=== PATIENT | female | born 1950 | race Caucasian/White ===

== ENCOUNTER 2021-09-19 17:06 | Inpatient (IN) | payer MEDICARE, SELFPAY ==
[2021-09-19] VITALS (8 sets, daily range): BP systolic 179–208; BP diastolic 66–90; PULSE 72–81; RESP 12–22; TEMP 36.3–37.1; O2SAT 96–100; BMI 25.4
--- NOTE | ~2021-09-19 | CT_ITS ---
EXAMINATION: CT cervical spine wo con DATE: 09/19/2021 18:28 INDICATION: neck pain, fall TECHNIQUE: Computed tomography (CT) of the cervical spine was performed without intravenous contrast. Automated exposure control and iterative reconstruction technique were employed. The dose-length pro duct was 182.22 mGy-cm. COMPARISON: None FINDINGS: Counting reference: Craniocervical junction. There are seven cervical type vertebral bodies. Anatomic Variants: None.. Vertebral Body Alignment: Intact. Craniocervical junction: Mild degenerative change. Alignment intact. Osseous structures/fracture: No evidence of a lytic or blastic process in the visualized spine. N o evidence of acute fracture. Cervical soft tissues: The paraspinal soft tissues planes are maintained. Degenerative changes: Multilevel severe degenerative disc disease. Multilevel severe bilateral neural foraminal narrowing. IMPRESSION: No acute fracture or traumatic malalignment in the cervical spine. Reviewed, dictated and finalized at location K.
--- NOTE | ~2021-09-19 | XR_ITS ---
EXAM: XR hand RT min 3V DATE: 09/19/2021 19:02 HISTORY: pain,1ST DIGIT PAIN . COMPARISON: 10/17/2018. FINDINGS: Decreased mineralization. Old ulnar styloid fracture. No acute fracture or dislocation. No lytic or blastic lesion. Scattered moderate and arthritic changes, most progressive at the trapeziom etacarpal joint, second and third MCP joints, and the second and third PIP joints. No erosion or harshal osteal change. Soft tissues within normal limits. IMPRESSION: No acute osseous finding in the right hand. Reviewed, dictated and finalized at location K.
--- NOTE | ~2021-09-19 | XR_ITS ---
EXAM: XR wrist LT min 3V DATE: 09/19/2021 19:02 HISTORY: FALL,GENERALIZED PAIN LT WRIST . COMPARISON: None available. FINDINGS: Decreased mineralization. No fracture or dislocation. No lytic or blastic lesion. Arthriti c change at the trapeziometacarpal joint and first MCP joint. Subchondral cyst formation in the scaph oid.. No erosion or periosteal change. Soft tissues within normal limits. IMPRESSION: No acute osseous finding in the left wrist.. Reviewed, dictated and finalized at location K.
--- NOTE | ~2021-09-19 | XR_ITS ---
EXAM: XR shoulder LT min 2V DATE: 09/19/2021 17:57 HISTORY: LT SHOULDER PAIN RADIATES UP AND PAINFUL TO MOVE . COMPARISON: None available. FINDINGS: Comminuted, minimally displaced fracture of the distal left clavicle. The AC joint remains aligned. Normal glenohumeral joint. Rotator cuff calcific tendinitis. No other fracture. Visualized lung parenchyma is grossly clear. IMPRESSION: Comminuted minimally displaced distal left clavicular fracture. Reviewed, dictated and finalized at location K.
--- NOTE | ~2021-09-19 | XR_ITS ---
EXAMINATION: XR chest 1V portable Exam Date/Time: 09/19/2021 17:50 CDT HISTORY: Cerebrovascular accident. Comparison: X-ray shoulder, same date. RESULT: Lines, tubes, and devices: None. Lungs and pleura: Senescent changes, otherwise clear. Cardiomediastinal silhouette: Stable cardiomediastinal silhouette. Other: Cortical irregularity of the distal left clavicle. No acute upper abdominal finding. IMPRESSION: Acute distal left clavicular fracture. Reviewed, dictated and finalized at location K.
--- NOTE | ~2021-09-19 | CT_ITS ---
EXAMINATION: CT brain wo con DATE: 09/19/2021 17:12 INDICATION: r/o CVA . TECHNIQUE: Computed tomography (CT) of the head was performed without intravenous contrast. The mA wa s adjusted according to patient size. Iterative reconstruction technique was employed. The dose-lengt h product was 605.33 mGy-cm. COMPARISON: 08/02/2018. FINDINGS: No acute intracranial hemorrhage or extra-axial fluid collection. No hydrocephalus, mass, or herniation. No acute ischemic infarct. Unremarkable dural venous sinus attenuation. No acute osseous abnormality. The aerated spaces are clear. Mild atrophy and chronic white matter change. Atherosclerotic intracranial calcification. IMPRESSION: No acute intracranial process. Reviewed, dictated and finalized at location K.
--- NOTE | ~2021-09-19 | US_ITS ---
EXAMINATION: US carotid duplex BI DATE: 09/20/2021 10:09 INDICATION: Carotid stenosis TECHNIQUE: Grayscale, color Doppler, and pulsed Doppler images of the cervical carotid arteries were obtained. The degree of vessel stenosis is placed in one of the following categories: normal, <50%, 5 0-69%, >=70% but less than near-occlusion, near-occlusion, or total occlusion. Note that percent sten osis relative to normal distal artery lumen diameter is indirectly measured from velocity measurement s as described by Bunny, et al. Radiology 2003; 229:340-346. Notes: Normal: Peak systolic velocity <125 centimeters/sec and no plaque <50%. Peak systolic velocity <125 ( EDV <40; ICA/CCA PSV ratio <2.0; used these factors only a tandem lesions or low cardiac output or co ntralateral disease) 50-69 %: PSV 125-230 (EDV 40-100; ratio 2-4) >= 70% but less than near occlusion: PSV greater than 230 (EDV > 100; ratio> 4.0) Near Occlusion: PSV that is variable; markedly narrowed lumen Occlusion: Absent flow on color/spectral Doppler and no lumen on bey scale. COMPARISON: None. FINDINGS: RIGHT: The right common carotid artery (CCA) peak systolic velocity (PSV) is 94 cm/s. The right internal car otid artery (ICA) PSV is 154 cm/s. The right ICA end-diastolic velocity (EDV) is 44 cm/s. The right I CA/CCA PSV ratio is 1.6. The external carotid artery (ECA) PSV is 64 cm/s. There is antegrade flow in the right vertebral artery. LEFT: The left CCA PSV is 67 cm/s. The left ICA PSV is 143 cm/s. The left ICA EDV is 84 cm/s. The left ICA/ CCA PSV ratio is 2.1. The ECA PSV is 84 cm/s. There is antegrade flow in the left vertebral artery. IMPRESSION: 1. 50-69% stenosis in the right internal carotid artery by sonographic criteria. 2. 50-69% stenosis in the left internal carotid artery by sonographic criteria. Reviewed, dictated and finalized at location A. IMPRESSION: 1. 50-69% stenosis in the right internal carotid artery by sonographic criteria . 2. 50-69% stenosis in the left internal carotid artery by sonographic criteria.
--- NOTE | ~2021-09-19 | MR_ITS ---
EXAMINATION: MR brain/brain stem wo/w con DATE: 09/20/2021 11:29 INDICATION: Acute confusion. Frontal headache. TECHNIQUE: Magnetic resonance imaging (MRI) of the brain and brainstem was performed without and with 14 mL MultiHance intravenous contrast. COMPARISON: Head CT 09/19/2021 FINDINGS: There are scattered areas of nonspecific increased T2-weighted signal intensity in the cere bral white matter, which is within normal limits for the patient's age. There is no intracranial hemo rrhage, acute infarction, or abnormal intracranial mass lesion. The ventricles are normal in size. Th e paranasal sinuses are clear. The orbits are normal. There is a trace left mastoid effusion. IMPRESSION: 1. Normal aging brain. Reviewed, dictated and finalized at location B. IMPRESSION: 1. Normal aging brain.
--- NOTE | 2021-09-19 17:07 | ECG_ITS ---
Measurements Intervals [place] Rate: 76 P: 66 PA: 196 QRS: -34 QRSD: 144 T: 78 QT: 388 QTc: 437 Interpretive Statements SINUS RHYTHM POSSIBLE LEFT ATRIAL ENLARGEMENT [-0.1mV P-WAVE IN V1/V2] LEFT AXIS DEVIATION [QRS AXIS < -30] LEFT BUNDLE BRANCH BLOCK [120+ ms QRS DURATION, 80+ ms Q/S IN V1/V2, 85+ ms R IN I/aVL/V5/V6] ABNORMAL ECG NO PREVIOUS ECG AVAILABLE FOR COMPARISON Electronically Signed On 09-20-2021 12:34:10 CDT by Joey Parry M.D.
[2021-09-19 17:17] LABS: Glucose Point of Care 131 mg/dl (65-105)
[2021-09-19 17:32] LABS: Basophils Percent Auto 0.4 % (0.2-1.2); Eosinophils Absolute Auto 0.1 K/mm3 (0-0.3); Hematocrit 37.2 % (37.0-47.0); Hemoglobin 13.2 g/dL (12.0-15.0); Immature Granulocyte Absolute 0.02 K/mm3 (0.00-0.031); Immature Granulocyte Percent A 0.4 % (0-0.5); Lymphocytes Absolute Auto 1.13 K/mm3 (0.9-3.2); Lymphocytes Percent Auto 24.8 % (18.3-44.2); Mean Corpuscular HGB Conc 35.5 g/dl (32-36); Mean Corpuscular Hemoglobin 29.3 pg (26-34); Mean Corpuscular Volume 82.7 fl (80-100); Mean Platelet Volume 8.7 fl (7.4-10.4); Monocytes Absolute Auto 0.4 K/mm3 (0.1-0.6); Monocytes Percent Auto 8.1 % (2.6-8.5); Neutrophils Absolute Auto 2.9 K/mm3 (1.3-6.7); Neutrophils Percent Auto 64.3 % (45.5-73.1); Platelet Count Result 184 k/mm3 (150-375); Red Cell Distribution Width 12.6 % (11.5-14.5); White Blood Count 4.6 K/mm3 (4.5-10.0)
--- NOTE | 2021-09-19 17:35 | ED.NEUROSD ---
HPI - Neuro Symptoms/Deficit General Chief Complaint: Suspected CVA Stated Complaint: Code CVA Time Seen by Provider: 09/19/21 17:12 Source: patient, EMS and RN notes reviewed Mode of arrival: EMS Limitations: clinical condition History of Present Illness HPI Narrative: This is a 71 year old female with history of hypertension who presents for evaluation of acute confusion. Patient had been outside at a family function all day. She was at the house with her sister, and her sister states patient went out to the garage. On patient's return to the garage she was confused. PAtient did not recognized who certain family members were. On EMS arrival, they report patient was having difficulty speaking and answering questions. On arrival to ER, patient was oriented to person. SHe denies headache, chest pain, dizziness, blurred vision, focal weakness, numbness or tingling. She does complain of left shoulder pain and right hand pain. Denies previous history of TIA or CVA. Last known normal was 1625 today. Timing confirmed by: family member Related Data Home Medications Medication Instructions Recorded Confirmed alendronate 35 mg tablet tablet PO 09/19/21 09/19/21 alprazolam 0.25 mg tablet 0.25 mg PO BID 09/19/21 09/19/21 atorvastatin 10 mg tablet tablet 09/19/21 escitalopram oxalate 10 mg tablet tablet 09/19/21 triamterene 37.5 tablet 09/19/21 mg-hydrochlorothiazide 25 mg tablet Allergies Allergy/AdvReac Type Severity Reaction Status Date / Time azithromycin Allergy Unknown Hives Verified 09/19/21 17:46 Review of Systems Review of Systems: All systems reviewed & are unremarkable except as noted in HPI and below Constitutional: Constitutional: Denies body ache(s), Denies fatigue and Denies fever(s) Eyes: Eyes: Denies blurry vision, Denies exophthalmos and Denies diplopia Cardiovascular: Cardiovascular: Denies chest pain at rest, Denies chest pain with activity and Denies rapid heart rate Respiratory: Respiratory: Denies chest congestion, Denies cough and Denies dyspnea on exertion Gastrointestinal: Gastrointestinal: Denies abdominal pain and Denies diarrhea Genitourinary: Genitourinary: Denies nocturia, Denies urinary hesitancy and Denies urinary urgency Neurologic: Reports confusion and Denies focal weakness [facility] Past Medical History Medical History (Updated 09/19/21 @ 19:54 by Sheri Thomson MD) Hyperlipidemia Hypertension Family History Family History (Updated 03/18/16 @ 14:58 by DOCTOR UNKNOWN) Other Family history of cardiovascular disease Hypertension Social History Social History Smoking status: Never smoker Alcohol intake: current Exam Narrative: GENERAL:lethargic, and in no acute distress. HEAD: Normocephalic, small abrasion left scalp at hairline, no hematoma EYES: PERRLA and EOMI, conjunctiva clear without discharge EARS: TM's clear bilaterally without erythema or dullness NOSE: Nares clear, no rhinorrhea or epistaxis THROAT:Mucous membranes moist, Oropharynx normal without erythema, exudate, peritonsillar swelling or fluctuance NECK: Supple, without lymphadenopathy or mass RESPIRATORY: No respiratory distress, Airway patent, Respirations non-labored, Clear to auscultation without rales, rhonchi or wheeze HEART: Regular rate and rhythm. No murmur heard. Normal peripheral pulses. ABDOMEN: Soft, nontender, nondistended, normal active bowel sounds. No masses. No rebound or guarding, No organomegaly. EXTREMITIES: No edema, normal strength with full range of motion. abrasion to left shoulder, right thumb swelling SKIN: Warm, dry, normal color without rash NEURO: Alert and oriented x self. CN 2-12 grossly intact. No focal deficits. PSYCH: Normal mood and affect. Neuro: General: oriented to person Cranial nerves: Yes CN's II-XII intact bilaterally, Yes Equal, round and reactive pupils present and Yes Bilaterally intact EOM present Speech: normal speech
[2021-09-19 17:42] LABS: Alanine Aminotransferase 18 U/L (6-35); Albumin Level 4.9 g/dL (3.5-5.1); Alkaline Phosphatase 116 U/L (38-126); Anion Gap 9 mmol/L (8-16); Aspartate Amino Transferase 31 U/L (14-36); Bilirubin,Total 0.6 mg/dL (0.2-1.3); Blood Urea Nitrogen 18 mg/dL (7-17); Calcium 9.1 mg/dL (8.4-10.2); Carbon Dioxide 27 mmol/L (22-30); Chloride 97 mmol/L (98-107); Estimated CRCL calculation 43 ml/min; Estimated Glomerular Filt Rate > 60; Glucose 111 mg/dL (65-110); Potassium 3.4 mmol/L (3.4-5.0); Sodium 133 mmol/L (137-145)
[2021-09-19 17:45] LABS: INR 0.9; Prothrombin Time 12.1 Seconds (11.1-14.7)
[2021-09-19 17:46] LABS: Partial Thromboplastin Time 22.6 SECONDS (22.3-36.8)
[2021-09-19 17:48] LABS: Ethanol < 10 mg/dL (<10)
[2021-09-19 17:54] LABS: Troponin I < 0.012 ng/mL (0.000-0.034)
--- NOTE | 2021-09-19 17:58 | PC.NURSE ---
Pt attempting to provide urine sample at this time on bedside commode
--- NOTE | 2021-09-19 18:45 | PC.NURSE ---
pt is on commode at this time attempting to provide urine sample.
[2021-09-19 18:53] LABS: SARS-CoV-2 RNA PCR Negative
[2021-09-19 18:56] LABS: Appearance Urine Clear (Clear); Bilirubin Urine Negative (Negative); Color Urine Yellow (Yellow); Glucose Urine UA Negative (Negative); Ketones Urine Negative (Negative); Leukocyte Esterase Ur 1+ LEU/UL (Negative); Nitrate Urine Negative (Negative); Protein Urine Negative (Negative); Urobilinogen Urine 0.2 mg/dL (<2.0); pH Urine 7.5 (5.0-9.0)
[2021-09-19] MEDS: LABETALOL HCL INJ 100 MG/20 ML VIAL 10 MG IV PUSH ×2 (19:00→19:50)
[2021-09-19 19:02] LABS: Amorphous Sediment Urine Few; Mucus Urine Rare /lpf; RBC Urine 0-2 /hpf (0-2); Squamous Epithelial Cell Urine Rare /hpf (Few); WBC Urine 0-3 /hpf
[2021-09-19 19:03] LABS: Add Urine Microscopic? YES; Blood Urine Trace-Intact (Negative)
--- NOTE | 2021-09-19 21:35 | ADMGEN ---
This patient, Brigida Mendez, was admitted to Medical Room 246-01. Patient/family oriented to hospital policies and general routines including ID bracelet, bed and alarms, visiting hours, pain management, procedures, bathroom and other care routines, personal items, smoking policy, room service/diet, and visiting hours. Information on how to activate the Rapid Response Team has been discussed. Patient/Family are encouraged to report perceived risks to care and to ask questions if they do not understand what they are told or what they should do.
[2021-09-19] MEDS: MORPHINE SULFATE (*CRX) 4 MG/ML INJ IV PUSH (21:48)
[2021-09-20] VITALS (14 sets, daily range): BP systolic 140–162; BP diastolic 54–68; PULSE 61–66; RESP 12–20; TEMP 35.9–36.7; O2SAT 98–100
[2021-09-20] MEDS: MORPHINE SULFATE (*CRX) 4 MG/ML INJ IV PUSH (04:07)
--- NOTE | 2021-09-20 04:36 | PM.IMHP ---
H&P: HPI History of Present Illness Date/Time: 09/20/21 04:36 Chief Complaint: Confusion, word adenike Narrative: 71-year-old female with past medical history of anxiety, hyperlipidemia hypertension who presented to the ER with with confusion and difficulty speaking. The patient states that she was out at a family function all day from 10:00 a.m. until 4:30 or 5:00 p.m. the she had drove home with her sister. Her sister had went into the house and the patient was still in the garage. The patient states that she does not remember anything that have been in the garage but she eventually we went inside. When she went inside she laid down on the couch. She does not remember this but was told this. Then the next thing she remembers is she was in the ambulance. Evidently when EMS arrived at the house the patient was confused and not recognizing certain family members. She was having difficulty speaking and answering questions. On arrival to the ER she was oriented to person. She was complaining of left shoulder pain right thumb pain at and left wrist pain. In the ER she was found to have a left clavicular fracture. On exam was noted that she had a bruise to her left parietal scalp. Throughout the course of her ER stay the patient became more oriented and was back to her baseline. She states that she does not remember falling or any injury. She does not know if she had any prodrome. She states that it was very hot outside and she tried to stay hydrated but she was sweating a lot throughout the day. She has had prior episodes of syncope with getting too hot but it is been fiber 6 years since this has happened because she tries to stay well hydrated. She denies any symptoms currently except for pain in her clavicle and a frontal headache. She does have some tenderness to palpation of her scalp. She has been voiding without difficulty. She denies feeling lightheaded currently. She has not been out of bed since she arrived to the medical floor. Is currently alert and oriented x4 except for the events immediately leading up to hospitalization. 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 She reports that the pain in her clavicle of a 7/10 in nature her headache is frontal headache with mild aching pain. While in the ER the patient did have blood pressures that were markedly elevated but improved after 2 doses of labetalol. Hypertension has not recurred. Source of information: Patient report, ER report. Review of Systems Review of Systems: 12 systems were reviewed with pertinent positives and negatives per HPI. Except as documented in the HPI, all other systems were reviewed and are negative. [facility] Past Medical History Medical History (Updated 09/20/21 @ 04:55 by Alina Sauer DO) Anxiety Depression Hyperlipidemia Hypertension Osteoporosis Surgical History Surgical History (Updated 09/20/21 @ 04:49 by Alina Sauer DO) History of tonsillectomy Status post medial meniscus repair Family History Family History (Updated 09/20/21 @ 04:48 by Alina Sauer DO) Father , Age 72 Biliary tract cancer Mother Cerebrovascular accident Sibling Heart disease Hypertension Social History Social History (Updated 09/20/21 @ 04:52 by Alina Sauer DO) Social History: Code status: Full code Smoking status: Never smoker Alcohol intake: current Alcohol use details: Rare alcohol use and only in moderation. Substance use: never Additional living arrangements comments: She has been since 2016. She raised 3 children. 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 She still stays busy volunteering at [facility], [facility] [employer] and participating in book clubs and other community activities. Siobhan c
[2021-09-20] MEDS: traMADol HCL (*CRX) 50 MG TABLET PO ×3 (05:25→19:47)
--- NOTE | 2021-09-20 06:00 | ECHO_ITS ---
Patient Info Name: Brigida Mendez Age: 71 years : 1950 Gender: Female Ht: 64 in Wt: 147 lbs BSA: 1.75 m2 HR: 62 bpm BP: 145 / 56 mmHg Heart Rhythm: Sinus Rhythm Technical Quality: Fair Exam Date: 09/20/2021 8:46 AM Exam Location: [facility] Patient Status: Outpatient Admit Date: 09/19/2021 Staff Ordering Physician: Sheri Thomson MD Database Modeler: Meagan Bob RDCS Attending Provider: Alina Sauer DO Referring Physician: Berto CHADWICK; Exam Type: CA echo doppler color flow Study Info Indications - possible syncope Complete two-dimensional, color flow and Doppler transthoracic echocardiogram is performed. Summary 1. Complete two-dimensional, color flow and Doppler transthoracic echocardiogram is performed. 2. Left ventricular chamber dimension is normal. 3. Left ventricular systolic function is normal, estimated at 65-70%. 4. There is mildly increased left ventricular wall thickness. 5. Left ventricular septal wall motion is abnormal with septal motion related to bundle branch block. 6. The left ventricular diastolic function is grade I diastolic dysfunction. 7. Left atrial chamber dimension is mildly enlarged. 8. There is mild mitral valve regurgitation. 9. There is mild tricuspid valve regurgitation. Left Ventricle Left ventricular chamber dimension is normal. Left ventricular systolic function is normal, estimated at 65-70%. There is mildly increased left ventricular wall thickness. Left ventricular septal wall motion is abnormal with septal motion related to bundle branch block. The left ventricular diastolic function is grade I diastolic dysfunction. Right Ventricle Right ventricular chamber dimension is normal. Right ventricular systolic function is normal. Left Atria Left atrial chamber dimension is mildly enlarged. Right Atria Right atrial chamber dimension is normal. Atrial Septum Intact interatrial septum visualized by color flow imaging. Aortic Valve The aortic valve is trileaflet. There is mild aortic valve sclerosis. There is no aortic valve stenosis. There is trace aortic valve regurgitation. Pulmonic Valve The pulmonic valve is normal. There is no pulmonic valve stenosis. There is trace pulmonic regurgitation. Mitral Valve The mitral valve has normal leaflets. There is no mitral valve stenosis. There is mild mitral valve regurgitation. Tricuspid Valve The tricuspid valve leaflets are normal. There is no significant tricuspid valve stenosis. There is mild tricuspid valve regurgitation. No pulmonary hypertension, estimated pulmonary arterial systolic pressure is 29 mmHg. Pericardium/Pleural The pericardium appears normal. There is trivial pericardial effusion. Inferior Vena Cava Normal inferior vena cava with <50% collapse upon inspiration consistent with elevated right atrial pressure, 10 mmHg. Left Ventricular Outflow Tract Name Value Normal LVOT 2D LVOT Diameter 2.0 cm LVOT Doppler LVOT Peak Gradient 4 mmHg LVOT Mean Gradient 2 mmHg LVOT VTI
--- NOTE | 2021-09-20 07:52 | PM.IMPN ---
Progress Note: A&P Assessment and Plan (1) Acute confusion: Code(s): R41.0 - Disorientation, unspecified Status: Acute Assessment and Plan: Patient with transient amnesia and garbled speech prior to admission. AOx3 with clear speech currently. - CT head negative for bleed. - MRI brain negative for ischemia or mass. - Carotid US with 50-69% stenosis right and left ICA, but no evidence of ischemic stroke on MRI. - B12 and TSH within normal limits. - likely secondary to closed head injury & post concussive syndrome. Appears back to baseline. Continue to monitor neuro status. (2) Closed head injury: Qualifiers: Encounter type: initial encounter Qualified Code(s): S09.90XA - Unspecified injury of head, initial encounter Code(s): S09.90XA - Unspecified injury of head, initial encounter Status: Acute Assessment and Plan: -Minimize stimuli. This was discussed with the patient and family. (3) Closed fracture of left clavicle: Qualifiers: Encounter type: initial encounter Clavicle location: unspecified part of clavicle Fracture alignment: displaced Qualified Code(s): S42.002A - Fracture of unspecified part of left clavicle, initial encounter for closed fracture Code(s): S42.002A - Fracture of unspecified part of left clavicle, initial encounter for closed fracture Status: Acute Assessment and Plan: Minimally displaced on imaging. -Continue conservative management with immobilization, ice, and pain control. (4) Hypertension: Code(s): I10 - Essential (primary) hypertension Status: Chronic Assessment and Plan: Orthostatics negative this morning. Patient was outside most of the day yesterday, sweating and reports taking diuretics. - BP 140-150/80s currently. Continue triamterene/HCTZ. - she may need further blood pressure agent d/t elevated BP and ASCVD 10-year risk score 15%. Will consider adding a beta-aurelio tomorrow if BP remains elevated. She is currently monitoring BP at home and encouraged to continue this. (5) Hyperlipidemia: Code(s): E78.5 - Hyperlipidemia, unspecified Status: Chronic Assessment and Plan: Total cholesterol 177, Triglycerides 142, LDL 74, HDL 71. ASCVD 10-year risk 15%. -Add ASA 81 mg daily -increase lipitor to 20 mg daily to keep LDL <70 -discussed heart healthy diet. (6) Left bundle branch block (LBBB) determined by electrocardiography: Code(s): I44.7 - Left bundle-branch block, unspecified Status: Acute Assessment and Plan: Unknown chronicity. Noted on EKG upon admission. No c/o chest pain, dyspnea, dizziness and troponin negative x2. -Recommend ischemic work-up outpatient, unless patient becomes symptomatic. Plan Plan to discharge tomorrow if remains stable without neuro changes. Time Spent With Patient Time with patient: 15 - 25 minutes (>50% time spent on patient education) Subjective Date/time seen: 09/20/21 07:52 Patient is a 71-year-old female with past medical history of anxiety, hyperlipidemia hypertension who presented to the ER with with confusion and difficulty speaking following a fall in the garage. She was found to have left clavicle fracture and was referred for observation to rule out TIA/ischemic stroke. Patient was found sitting up in the bed with son and daughter at bedside. She denies c/o chest pain, SOB, abd pain, N/V/D, constipation, dizziness, unsteady gait, unilateral extremity weakness, vision changes, or ARIAS. She has mild left nasal and mandible pain that she attributes to her fall. She reports no prior h/o heart attack and denies episodes of substernal chest, arm, jaw, neck, or pain between shoulder blades in the past few months. Review of Systems Review of Systems: All systems reviewed & are unremarkable except as noted in HPI and below Exam Narrative: Constitutional:? 68-year-old thin, older adult female in
[2021-09-20 08:39] LABS: Cholesterol 177 mg/dL (0-200); HDL Direct 71 mg/dL; Triglycerides 142 mg/dL (<150)
[2021-09-20 08:50] LABS: LDL Cholesterol Direct 74 mg/dL
[2021-09-20 08:52] LABS: Troponin I < 0.012 ng/mL (0.000-0.034)
[2021-09-20] MEDS: ATORVASTATIN 10 MG TABLET PO (09:12)
[2021-09-20] MEDS: TRIAMTERENE 37.5 MG/HCTZ 25 MG (MAXZIDE) TABLET 1 TAB PO (09:12)
[2021-09-20] MEDS: ESCITALOPRAM OXALATE 10 MG TABLET PO (09:12)
[2021-09-21] VITALS (7 sets, daily range): BP systolic 155; BP diastolic 64; PULSE 60–75; RESP 20; TEMP 36; O2SAT 98
--- NOTE | 2021-09-21 08:49 | PM.DS ---
DS: Admitting Diagnosis Discharge Date 09/21/2021 1323 Admitting Diagnosis Acute confusion Closed head injury Closed fracture of left clavicle Hypertension DS: Discharge Diagnosis Discharge Diagnosis (1) Acute confusion: Code(s): R41.0 - Disorientation, unspecified Status: Acute (2) Closed head injury: Qualifiers: Encounter type: initial encounter Qualified Code(s): S09.90XA - Unspecified injury of head, initial encounter Code(s): S09.90XA - Unspecified injury of head, initial encounter Status: Acute (3) Closed fracture of left clavicle: Qualifiers: Clavicle location: unspecified part of clavicle Encounter type: initial encounter Fracture alignment: displaced Qualified Code(s): S42.002A - Fracture of unspecified part of left clavicle, initial encounter for closed fracture Code(s): S42.002A - Fracture of unspecified part of left clavicle, initial encounter for closed fracture Status: Acute (4) Hypertension: Code(s): I10 - Essential (primary) hypertension Status: Chronic (5) Hyperlipidemia: Code(s): E78.5 - Hyperlipidemia, unspecified Status: Chronic (6) Left bundle branch block (LBBB) determined by electrocardiography: Code(s): I44.7 - Left bundle-branch block, unspecified Status: Acute DS: Summary Hospital Course Reason for hospitalization: Unwitnessed fall and altered mental status Hospital Course: Brigida Mendez is a 71-year-old female with past medical history of anxiety, hyperlipidemia and hypertension. She presented to the ER with confusion and difficulty speaking.? The patient states that she was out at a family function all day from 10:00 a.m. until 4:30 or 5:00 p.m. then she had drove home with her sister.? Her sister went into the house and the patient was still in the garage.? The patient stated that she does not remember anything that happened in the garage, but she eventually we went inside.? When she went inside she laid down on the couch.? She did not remember this but was told this by family.? The next thing she remembered was being in the ambulance.? Evidently when EMS arrived at the house the patient was confused and not recognizing certain family members.? She was having difficulty speaking and answering questions.? On arrival to the ER, she was oriented to person.? She was complaining of left shoulder pain, right thumb pain at and left wrist pain.? In the ER she was found to have a distal left clavicular fracture with minimal displacement.? On exam was noted that she had a bruise to her left parietal scalp.? Throughout the course of her ER stay the patient became more oriented and was back to her baseline.? She stated that she does not remember falling or any injury.? She did not know if she had any prodrome.? She reported it was very hot outside and she tried to stay hydrated but she was sweating a lot throughout the day.? She has had prior episodes of syncope with getting too hot, as well as issues with low altituge. She denies any symptoms currently except for pain in her clavicle and a frontal headache.? She does have some tenderness to palpation of her scalp.? She has been voiding without difficulty.? She denies feeling lightheaded currently. 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 The patient was referred for observation and evaluation for possible TIA. Brain MRI was negative for ischemic stroke. Carotid dopplers showed 50-69% stenosis to right and left ICA. Transthoracic echocardiogram showed grade 1 diastolic disfunction, mild LVH, and septal wall motion abnormality consistent with bundle branch block. EKG and telemetry showed NSR with LBBB, but no ST, T-wave or Q-wave changes. She denied chest pain. Orthostatic vitals were negative, however, the patient did h
[2021-09-21] MEDS: ATORVASTATIN 10 MG TABLET 20 MG PO (09:15)
[2021-09-21] MEDS: ASPIRIN 81 MG ENTERIC TABLET PO (09:15)
[2021-09-21] MEDS: ESCITALOPRAM OXALATE 10 MG TABLET PO (09:15)
[2021-09-21] MEDS: TRIAMTERENE 37.5 MG/HCTZ 25 MG (MAXZIDE) TABLET 1 TAB PO (09:16)
[2021-09-21] MEDS: METOPROLOL TARTRATE 12.5 MG TABLET PO (09:17)
== END 2021-09-21 13:55 | disposition home or self-care (01) | DRG 948 ==
LOC: ANHED 19:54 → ANH2MED 20:33
PROVIDERS: Emergency Medicine; Admitting Provider Internal Medicine; Emergency Provider General Practice; PCP Hospitalist; Visit Provider Nurse Practitioner Family
DX: R41.3 Other amnesia (principal); F07.81 Postconcussional syndrome; Z20.822 Contact with and (suspected) exposure to COVID-19; S42.002A Fracture of unspecified part of left clavicle, initial encounter for closed fracture; I10 Essential (primary) hypertension; E78.5 Hyperlipidemia, unspecified; M81.0 Age-related osteoporosis without current pathological fracture; F41.9 Anxiety disorder, unspecified; Z82.49 Family history of ischemic heart disease and other diseases of the circulatory system; Z79.899 Other long term (current) drug therapy; I44.7 Left bundle-branch block, unspecified; S00.03XA Contusion of scalp, initial encounter; W19.XXXA Unspecified fall, initial encounter; I65.23 Occlusion and stenosis of bilateral carotid arteries; R55 Syncope and collapse
CPT/HCPCS: 36415; 70450; 70553; 71045; 72125; 73030; 73110; 73130; 80053; 80061; 80307; 81001; 82607; 82948; 84443; 84484; 85025; 85610; 85730; 93005; 93306; 93880; 96365; 96375; 96376; 99285; A4565; A9270; A9577; C9803; G0378; J0131; J2270; U0003; U0005

== ENCOUNTER 2022-08-10 09:00 | Outpatient (RCR) | payer MEDICARE, SELFPAY ==
--- NOTE | 2022-06-14 13:24 | PTOPEVAL1 ---
Assessment and note entered by Selma Segovia DPT Evaluation Information Assessment Status Evaluation Subjective Information Pt reports pain radiating down posterior R LE that started 2-3 months ago. Radiates down to mid calf , has gone into her foot at times. Was having significant difficulty walking. Also reports numbness and tingling, burning sensation. Highest pain in last week 6/10 and lowest 0/10. Recently reports that sitting relieves her pain but walking increases her pain. Has had difficulty even getting through the grocery store and needs to sit . Prolonged standing to cook and clean is painful. Some pain with driving due to it being her right leg. Previously did not have radiating pain, much less difficulty with standing, walking, driving. No return visit scheduled for MD yet. Has a history of low back pain but reports this is different. Has had stenosis confirmed on imaging. Reported Pain Level Pain Score 2: Self Report Assessment PT Clinical Summary The patient is presenting to skilled therapy with a several month history of radiating R LE pain. She presents with decreased lumbar range of motion , decreased strength, signs of neural tension, and piriformis pain and tightness. These impairments are contributing to her pain and difficulty with standing and walking activities. She will benefit from skilled therapy to address these impairments and safely reduce pain and dysfunction. Plan of Care Interventions Electrical Stimulation,Gait Training,Hot Pack/Cold Pack,Manual Therapy,Neuro Re-education,Patient/ Caregiver Education,Therapeutic Activities, Therapeutic Exercise,Self-Care/Home Management PT Services Indicated Yes Treatment Frequency and 2 times a week for 4 weeks Duration These treatments will address the objective and functional deficits as defined above. The patient will be advanced safely and appropriately in order for the patient to progress towards his/her prior level of function. Additional exercises will be introduced and as well as a comprehensive home exercise program upon discharge, if needed, ?to ensure carryover of functional gains achieved in the clinic. This treatment plan has been reviewed and agreement upon by the patient.
--- NOTE | 2022-07-13 09:41 | PTOPREEVAL ---
Assessment and note entered by Sandip Watson, PT Evaluation Information Assessment Status Re-evaluation Diagnosis Piriformis syndrome Rt side, low back pain R side Subjective Information Patient reports all in all she is doing very well. She thinks physical therapy has helped and she has also gotten injections in her back and is not currently feeling any pain. She reports she is still holding back on her daily activities and slowly starting to get back to it. Assessment PT Clinical Summary Brigida is a 72 year old female coming into the clinic with a diagnosis of Piriformis syndrome R side with low back pain in the R side. She was evaluated on 06/14/22 and has attended 9 sessions. She has met her strengthening, functional, and muscle tightness goals, but not range of motion goals. Will continue to work with patient to meet last two goals, but decrease frequency and encourage patient to do all prior to problem activities to make sure she is better and not just avoiding activities causing pain. Plan of Care Interventions Electrical Stimulation,Gait Training,Hot Pack/Cold Pack,Manual Therapy,Mechanical Traction,Neuro Re- education,Patient/Caregiver Education,Therapeutic Activities,Therapeutic Exercise,Ultrasound Other Interventions taping, cupping, IASTM. PT Services Indicated Yes Treatment Frequency and 1x/wk for 4 weeks Duration These treatments will address the objective and functional deficits as defined above. The patient will be advanced safely and appropriately in order for the patient to progress towards his/her prior level of function. Additional exercises will be introduced and as well as a comprehensive home exercise program upon discharge, if needed, ?to ensure carryover of functional gains achieved in the clinic. This treatment plan has been reviewed and agreement upon by the patient.
--- NOTE | 2022-08-10 10:29 | PTOPDC ---
Assessment and note entered by Sandip Watson, PT Evaluation Information Assessment Status Discharge Diagnosis Piriformis Syndrome R side, low back pain R side Subjective Information Patient reports she is feeling a lot better. She has been walking 2 miles at the park and doing all of her usual activities of daily living without any pain. Okay for discharge with HEP. Reported Pain Level Pain Score 0: Self Report Assessment PT Clinical Summary Brigida is a 72 year old female coming into the clinic with diagnosis of R sided piriformis and low back pain. She was evaluated on 06/14/22. She attended 12 sessions and has met all of her goals. She will be discharged to home with HEP. Plan of Care PT Services Indicated No
== END 2022-08-10 15:07 | disposition home or self-care (01) ==
LOC: ANHPT 09:00
PROVIDERS: PCP Hospitalist; Visit Provider Internal Medicine
DX: G57.01 Lesion of sciatic nerve, right lower limb (principal); M54.41 Lumbago with sciatica, right side; G89.29 Other chronic pain
CPT/HCPCS: 97110; 97112; 97140; 97162; 97530

== ENCOUNTER 2025-01-27 11:00 | Outpatient (RCR) | payer MEDICARE, OTHER, SELFPAY ==
--- NOTE | 2024-12-30 15:49 | OPREHPOC ---
Outpatient Therapy Plan of Care This is a Multidisciplinary Plan of Care that may contain components documented by all disciplines (PT, OT, and ST.) PT Problem 1 PT Problem #1 Knowledge Deficit PT Goal 1 Goal / Goal Update [place] with HEP Target Visit 4 PT Goal 2 Goal / Goal Update Report no pain greater than 1/10 with ambulation activity Target Visit 8 PT Problem 2 PT Problem #2 Impaired Range of Motion PT Goal 1 Goal / Goal Update 1. Improve allie hip abduction ROM to 40 degrees to reduce pelvic pull with hip mobility 2. Improve hamstring 90/90 flexibility to -25 degrees allie to reduce neural tension Target Visit 8 PT Problem 3 PT Problem #3 Impaired Strength PT Goal 1 Goal / Goal Update 1. Improve lower abdominal strength to 4/5 to improve lumbar stability with ADLs Target Visit 8 PT Problem 4 PT Problem #4 Impaired Gait PT Goal 1 Goal / Goal Update Ambulate with even stride length bilaterally Target Visit 8
--- NOTE | 2024-12-30 15:49 | PTOPEVAL1 ---
Assessment and note entered by Reed Brown, PT Evaluation Information Assessment Status Evaluation Diagnosis S/P Lumbar fusion M43.26 ICD-10 Condition Codes (PT) Pain in low back M54.50 Onset September 05, 2024 Subjective Information Reports that overall she is stiff in the morning and sore when first getting out of bed. She is able to sleep through the night. She has taken herself off of all of her medication. She is taking Tylenol occasionally. As long as she is moving, she feels good. She is a back and left side sleeper. She still has some minor nerve irritation down her right leg to about her knee with some numbness present. She has been released from physician care. Reported Pain Level Pain Score 2: Self Report Assessment PT Clinical Summary Patient presents with core and hip weakness with poor hip disassociation of hip motion outside of lumbar spine. She will benefit from skilled therapy to address lateral pelvic weakness and gait progression. Plan of Care Interventions Gait Training,Hot Pack/Cold Pack,Manual Therapy, Neuro Re-education,Therapeutic Activities, Therapeutic Exercise PT Services Indicated Yes Treatment Frequency and 2x/week for 8 visits Duration These treatments will address the objective and functional deficits as defined above. The patient will be advanced safely and appropriately in order for the patient to progress towards his/her prior level of function. Additional exercises will be introduced and as well as a comprehensive home exercise program upon discharge, if needed, ?to ensure carryover of functional gains achieved in the clinic. This treatment plan has been reviewed and agreement upon by the patient.
--- NOTE | 2025-01-27 11:46 | OPREHPOC ---
Outpatient Therapy Plan of Care This is a Multidisciplinary Plan of Care that may contain components documented by all disciplines (PT, OT, and ST.) PT Problem 1 PT Problem #1 Knowledge Deficit PT Goal 1 Goal / Goal Update [place] with HEP Target Visit 4 Progress Met PT Goal 2 Goal / Goal Update Report no pain greater than 1/10 with ambulation activity Target Visit 8 Progress Met PT Problem 2 PT Problem #2 Impaired Range of Motion PT Goal 1 Goal / Goal Update 1. Improve allie hip abduction ROM to 40 degrees to reduce pelvic pull with hip mobility 2. Improve hamstring 90/90 flexibility to -25 degrees allie to reduce neural tension Target Visit 8 Progress Met PT Problem 3 PT Problem #3 Impaired Strength PT Goal 1 Goal / Goal Update 1. Improve lower abdominal strength to 4/5 to improve lumbar stability with ADLs Target Visit 8 Progress Met PT Problem 4 PT Problem #4 Impaired Gait PT Goal 1 Goal / Goal Update Ambulate with even stride length bilaterally Target Visit 8 Progress Met
--- NOTE | 2025-01-27 11:46 | PTOPDC ---
Assessment and note entered by Reed Brown, PT Evaluation Information Assessment Status Discharge Diagnosis S/P Lumbar fusion M43.26 ICD-10 Condition Codes (PT) Pain in low back M54.50 Onset September 05, 2024 Subjective Information Patient reports that overalls he feel she is doing really well. No concerns at this time and plans to continue with HEP as she was not consistent with it last time she went through therapy. Reported Pain Level Pain Score 0: Self Report Assessment PT Clinical Summary Patient has met all goals for therapy and is suitable for discharge to HEP at this time. No concerns for discharge. Will continue working on hip strength as part of HEP. Plan of Care PT Services Indicated Yes
== END 2025-01-27 14:22 | disposition home or self-care (01) ==
LOC: ANHGOSHPT 11:00
PROVIDERS: PCP Family Medicine
DX: M43.26 Fusion of spine, lumbar region (principal)
CPT/HCPCS: 97110; 97112; 97140; 97161; 97530

== ENCOUNTER 2025-03-30 10:17 | Emergency (ER) | payer MEDICARE, SELFPAY ==
[2025-03-30 10:26] VITALS: BP 149/68; PULSE 93; RESP 18; TEMP 36.4; O2SAT 100
--- NOTE | 2025-03-30 10:49 | ED.URI ---
HPI - URI/Sore Throat General Chief Complaint: Upper Respiratory Infection Stated Complaint: headache/cough/sore throat Time Seen by Provider: 03/30/25 10:35 Source: patient and RN notes reviewed Mode of arrival: ambulatory Limitations: no limitations History of Present Illness HPI Narrative: 74-year-old female patient presents today complaining of a 5 day history of sinus pressure, sore throat, postnasal drip, headache, and bilateral ear pressure. She has been taking Zyrtec and Aleve with minimal relief. Prior to onset of symptoms, patient had multiple sick contacts at a wedding. Denies fever, body aches, chills. She had to negative home COVID and influenza tests a few days ago. Related Data Allergies Allergy/AdvReac Type Severity Reaction Status Date / Time azithromycin Allergy Unknown Hives Verified 03/30/25 10:38 [facility] Past Medical History Medical History Chronic headaches Urinary frequency CMC DJD(carpometacarpal degenerative joint disease), localized primary Left bundle branch block (LBBB) determined by electrocardiography Osteoporosis Anxiety Depression Closed fracture of left clavicle Hyperlipidemia Hypertension Surgical History Surgical History Status post medial meniscus repair History of tonsillectomy Family History Family History Father , Age 72 Biliary tract cancer Mother Cerebrovascular accident Sibling Heart disease Hypertension Social History Social History Social History: Code status: Full code Smoking status: Never smoker Alcohol intake: current Alcohol use details: Rare alcohol use and only in moderation. Substance use: never Lack of Transportation: No Lack of Food: Never True Current Housing: I Have Housing Concerned About Future Housing: No Difficulty Paying Gas/Electric Bills: No Difficulty Paying for Meds: No Currently Unemployed: No Education: High School Diploma/GED Difficulty w/ Childcare or Family Care: No Additional living arrangements comments: She has been since 2016. She raised 3 children. 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 She still stays busy volunteering at [facility], [facility] and participating in book clubs and other community activities. Spiritual care concerns: No Comments At time of signature, I have reviewed and agree with nursing past medical, surgical, social and family history unless otherwise noted. Please see nursing chart for further information. There is no relevant family history pertinent to the presenting complaint Exam Narrative: GENERAL: Mildly-appearing, well-nourished, and in no acute distress. HEAD: Normocephalic, atraumatic. EYES: EOMI. No redness or drainage. Conjunctivae normal. ENT: Mucous membranes pink and moist. Nares congested with rhinorrhea. Mild tenderness of the frontal and maxillary sinuses. TMs normal bilaterally. Throat normal. Uvula midline. NECK: Normal AROM. Supple. No lymphadenopathy. CHEST: No respiratory distress. Clear to auscultation. HEART: Regular rate and rhythm. No murmur appreciated. EXTREMITIES: Normal range of motion. No edema. SKIN: Warm, dry, no rash. Capillary refill normal. Normal skin turgor. NEURO: No focal deficits. Alert and oriented x3. Gait steady. PSYCH: Normal affect. No signs of depression or anxiety. Course Course Level of Care: Express Care Visit Vital Signs Vital signs: Vital Signs Temperature 97.5 F L 03/30/25 10: Pulse Rate 93 03/30/25 10:26 Respiratory Rate 18 03/30/25 10:26 Blood Pressure 149/68 H 03/30/25 10:26 Pulse Oximetry 100 03/30/25 10:26 Oxygen Delivery Room Air 03/30/25 10:26 Temperature 97.5 F L 03/30/25 10:26 Pulse Rate 93 03/30/25 10:26 Respiratory Rate 18 03/30/25 10:26 Blood Pressure 149/68 H 03/30/25 10:26 Pulse Oximetry 100 03/30/25 10:26 Oxygen Delivery Room Air 03/30/25 10:26 Reviewed MDM MDM Narrative Medical decision making narrative: 74-year-old female patient presents today complaining of a 5 day history of sinus pressure, sore throat, postnasal drip, headache, and bilateral ear pressure. She has been taking Zyrtec and Aleve with minimal relief. Prior to onset of symptoms, patient had multiple sick contacts at a wedding. Denies fever, body aches, chills. Negative home COVID and influenza swabs. Upon exam, patient is mildly ill appearing with nasal congestion, rhinorrhea, and mildly tender sinuses. Symptoms likely viral in etiology. Discussed [id number] medication use and duration of illness. No prescription medications indicated at this time. Anticipatory guidance given. Patient agrees with plan. Vital signs stable. Anticipatory guidance given. Differential Diagnosis Differential Diagnosis: URI, AOM, sinusitis Critical Care Time Critical Care Time Critical Care Time: No Discharge Plan Discharge Clinical Impression: Upper respiratory infection Qualifiers: URI type: unspecified URI Qualified Code(s): J06.9 - Acute upper respiratory infection, unspecified Patient Disposition: Home Condition: Stable Instructions: Upper Respiratory Infection (DC) Additional Instructions: Your symptoms are likely due to a viral illness, which is not treated with antibiotics. Virus symptoms can last for up to 7-10days. Take Tylenol or ibuprofen for pain or fever. Consider Mucinex for any chest congestion. Consider starting an intranasal steroid such as Flonase or saline nasal spray to break up nasal congestion. Rest and stay hydrated. Follow up with your PCP in 5-7 days if symptoms are not improving. Go to the ER immediately if you develop shortness of breath, difficulty swallowing, or any other concerning symptoms. Patient Language: Portuguese Prescriptions: No Action amlodipine 10 mg tablet 10 mg PO DAILY Qty: 90 1RF atorvastatin 10 mg tablet 10 mg PO DAILY Qty: 90 1RF losartan 100 mg tablet 100 mg PO DAILY Qty: 90 1RF metoprolol tartrate 25 mg tablet 25 mg PO BID 90 Days Qty: 180 1RF escitalopram oxalate 20 mg tablet 20 mg PO DAILY Qty: 90 1RF alendronate 35 mg tablet See Rx Instructions .ROUTE .COMPLEX Qty: 12 0RF Dose Instruction: TAKE 1 TABLET BY MOUTH WEEKLY ON MONDAYS Rx Instructions: TAKE 1 TABLET BY MOUTH WEEKLY ON MONDAYS Follow-up/Referrals: Rick Rust DO [Primary Care Provider, [facility]] Time of Disposition: 10:53
== END 2025-03-30 11:00 | disposition home or self-care (01) ==
PROVIDERS: Emergency Provider Nurse Practitioner; PCP Family Medicine
DX: J06.9 Acute upper respiratory infection, unspecified (principal); I10 Essential (primary) hypertension; E78.5 Hyperlipidemia, unspecified; F41.9 Anxiety disorder, unspecified; F32.A Depression, unspecified; M81.0 Age-related osteoporosis without current pathological fracture
CPT/HCPCS: 99211; G0463